=== PATIENT | male | born 1955 | race African-American/Black ===

== ENCOUNTER 2018-07-26 14:24 | Inpatient (IN) | payer OTHER ==
--- NOTE | 2018-07-15 22:40 | NUR ---
PT. AWAKE AND WATCHING TV. ABLE TO USE URINAL BY HIMSELF. GOOD AFFECT. VERBALIZES SIMPLE NEEDS. CALL LIGHT WITH IN REACH. Addendum: 07/30/18 at 0027 by Marcella Dorsey RN CHARTING FOR 07/29/18
[~2018-07-26] VITALS: Ht 172.7 cm; Wt 62.6 kg
--- NOTE | 2018-07-26 14:24 | NUR ---
pt brought in by EMS to bed 7
[2018-07-26 14:32] VITALS: BP 122/81
--- NOTE | 2018-07-26 14:34 | NUR ---
NUSRAT. PATIENT PRESENTS TO ED WITH ALOC . PT SPEACH IS HARD TO UNDERSTAND DUE TO DEVELOPMENTAL DELAYS. PER REPORT FROM APPLICATIONS CONSULTANT HE HAD A NEAR SYNCOPE EPISODE OUT SIDE HIS ADULT DAY CARE FACILITY AND WAS ACTING ALTERED AFTER THAT. DENIES N/V/D; SKIN IS PINK/WARM/DRY; AAOX4 WITH EVEN AND STEADY GAIT; LUNGS CLEAR BL; HR EVEN AND REGULAR; PT PRESENTS WITH FEVER AND COUGH. PATIENT STATES PAIN OF 0/10 AT THIS TIME; VSS; PATIENT POSITIONED FOR COMFORT; HOB ELEVATED; BEDRAILS UP X2; BED DOWN. ER MD MADE AWARE OF PT STATUS.
[2018-07-26] MEDS ORDERED: NACL 0.9% 2,000 ML IV SCH (14:47)
[2018-07-26] MEDS ORDERED: FAMOTIDINE 20 MG/2 ML VIAL IVP ONE (14:50)
[2018-07-26] MEDS ORDERED: cefTRIAXone 1,000 MG in DEXT 5% MINI-BAG PLUS 50 ML IV ONE (14:50)
[2018-07-26] MEDS ORDERED: ALBUTEROL 0.083% 2.5 MG/3 ML NEBU INH ONE (14:50)
[2018-07-26] MEDS ORDERED: AZITHROMYCIN 500 MG in DEXTROSE 5% 250 ML IV ONE (14:50)
[2018-07-26] MEDS ORDERED: MAGNESIUM SULFATE 50% 1,000 MG in NACL 0.9% 50 ML IV ONE (14:50)
[2018-07-26] MEDS ORDERED: IPRATROPIUM 0.02% 0.5 MG/2.5 ML NEBU INH ONE (14:50)
[2018-07-26] MEDS ORDERED: methylPREDNISolone SS 125 MG/2 ML VIAL IVP ONE (14:50)
[2018-07-26] MEDS ORDERED: cefTRIAXone 1,000 MG VIAL ONE (15:04)
[2018-07-26] MEDS ORDERED: AZITHROMYCIN 500 MG INJ VIAL IV ONE (15:04)
[2018-07-26] MEDS ORDERED: MAGNESIUM SULFATE 50% 1000 MG/2 ML VIAL IV ONE (15:04)
[2018-07-26 15:21] LABS: HEMATOCRIT 37.1 % (36-52); HEMOGLOBIN 12.1 g/dL (12.0-18.0); MEAN CORPUSCULAR HEMOGLOBIN 29 pg (27-31); MEAN CORPUSCULAR HGB CONC 33 g/dL (33-37); MEAN CORPUSCULAR VOLUME 88.7 fL (80-94); PLATELET COUNT (AUTO) 181 K/uL (140-450); RED BLOOD CELL COUNT(AUTO) 4.19 MIL/uL (4.20-6.10); RED CELL DISTRIBUTION WIDTH 16.1 % (11.6-13.7); WHITE BLOOD COUNT (AUTO) 15.5 K/uL (4.8-10.8)
[2018-07-26 15:40] LABS: PROTHROMBIN TIME 11.2 secs (10.8-13.4)
[2018-07-26 15:46] LABS: LYMPHOCYTES % (MANUAL) 6 % (20-46); MONOCYTES % (MANUAL) 10 % (5-12)
[2018-07-26 16:01] LABS: ALBUMIN 3.1 g/dL (3.4-5.0); ANION GAP 10.7 (8-16); CREATININE 1.2 mg/dL (0.7-1.3); POTASSIUM 4.7 mmol/L (3.5-5.1); TOTAL BILIRUBIN 0.3 mg/dL (0.0-1.0)
--- NOTE | 2018-07-26 16:01 | NUR ---
SPOKE WITH LIZ HIGGINS FROM [facility] AND GAVE THEM UPDATE THAT PATIENT IS PENDING WORKUP.
[2018-07-26 16:30] LABS: APPEARANCE,URINE CLEAR (CLEAR); BILIRUBIN,URINE NEGATIVE (NEGATIVE); BLOOD, URINE NEGATIVE (NEGATIVE); COLOR,URINE YELLOW (YELLOW); LEUKOCYTE ESTERASE ,URINE NEGATIVE (NEGATIVE); NITRITE, URINE NEGATIVE (NEGATIVE); UGLUCOSE 3+ (NEGATIVE)
[2018-07-26] MEDS ORDERED: NACL 0.9% 1,000 ML IV ONE (16:50)
[2018-07-26] MEDS ORDERED: ZOLPIDEM 5 MG TAB PO PRN (17:30)
[2018-07-26] MEDS ORDERED: MORPHINE SULFATE 2 MG/ML SYR IVP PRN (17:30)
[2018-07-26] MEDS ORDERED: ONDANSETRON 4 MG/2 ML VIAL IM/IVP PRN (17:30)
[2018-07-26] MEDS ORDERED: HYDROcodone/APAP 5/325 MG 1 TAB TAB PO PRN (17:30)
[2018-07-26] MEDS ORDERED: DOCUSATE SODIUM 100 MG GELCAP PO PRN (17:30)
[2018-07-26] MEDS ORDERED: LORazepam 2 MG/ML VIAL IM/IVP PRN (17:30)
[2018-07-26] MEDS ORDERED: ALBUTEROL SULFATE/IPRATROPIU 3 ML SOL IH PRN (17:45)
[2018-07-26] MEDS: NACL 0.9% 1,000 ML IV SCH (17:49)
--- NOTE | 2018-07-26 17:52 | NUR ---
PT TAKEN TO CT
--- NOTE | 2018-07-26 18:25 | NUR ---
RECEIVED PT REPORT FROM ER NURSE AT BEDSIDE. PT IS AAOX2. VITALS TAKEN, WITHIN NORMAL LIMIT. BP 103/67, HR 95, TEMP 97.8, 98% ON ROOM AIR. NO S/S OF ACUTE DISTRESS. PROVIDE PT WITH URINAL, URINE X1. PIC TAKEN FOR THE UPPER EXTREMITIES AND BACK. PT STATED THAT THE SCABS ARE FROM HE SCRATCHING HIMSELF. OTHERWISE SKIN IS INTACT. ORIENTED PT TO THE ROOM. MRSA SWAB DONE. BED IN LOWEST POSITION. CALL LIGHT WITHIN REACH.
[2018-07-26] MEDS ORDERED: DEXTROSE 50% 50 ML SYR IVP PRN (18:30)
[2018-07-26] MEDS: ALBUTEROL SULFATE/IPRATROPIU 3 ML SOL IH SCH (18:39)
[2018-07-26] MEDS ORDERED: GLIM2TAB PO (18:58)
[2018-07-26] MEDS ORDERED: METF1000 PO (18:58)
[2018-07-26] MEDS ORDERED: QUET400T PO (18:58)
[2018-07-26] MEDS ORDERED: FERR325E14 PO (18:58)
[2018-07-26] MEDS ORDERED: VITD1000 PO (18:58)
[2018-07-26] MEDS ORDERED: ALLO100T21 PO (18:58)
[2018-07-26] MEDS ORDERED: CETI10TA71 PO (18:58)
[2018-07-26] MEDS ORDERED: DIVA500T1 PO (18:58)
--- NOTE | 2018-07-26 19:00 | NUR ---
REPORT LACTIC ACID 1.[address] ELLIOTT. NO REPEAT NEEDED.
[2018-07-26 19:30] VITALS: BP 107/68
--- NOTE | 2018-07-26 19:30 | NUR ---
REPORT GIVEN TO MATERIALS SCIENTIST RN. PT IN STABLE CONDITION.
--- NOTE | 2018-07-26 19:30 | NUR ---
RECEIVED REPORT FROM CARLOS MELENDEZ AT BEDSIDE , PT IN STABLE CONDITION.
[2018-07-26] MEDS: DIVALPROEX 500 MG TABER PO SCH (20:33)
[2018-07-26] MEDS: GLIMEPIRIDE 2 MG TAB PO SCH (20:33)
[2018-07-26] MEDS: metFORMIN 500 MG TAB PO SCH (20:33)
[2018-07-26] MEDS: QUEtiapine FUMARATE 25 MG TAB PO SCH (20:34)
[2018-07-26] MEDS ORDERED: QUEtiapine FUMARATE 100 MG TAB PO SCH (21:00)
--- NOTE | 2018-07-26 21:00 | NUR ---
PT IN BED AWAKE AND AOX2, PT HAS SLIGHT SPEECH IMPEDIMENT AND HAS A HX OF INTELLECTUAL DISABILITY. PT HAS SCABS OVER UPPER EXTREMITIES AND BACK WITH A FEW OPEN AREAS ( NO BLEEDING NOTED). PT GIVEN SANDWICH AND SUGAR FREE PUDDING FOR DESERT. PT HAS NO C/O OF PAIN. HE IS AMBULATORY BUT HAS AN UNSTEADY GAIT. LUNG SOUNDS DIMINISHED AND B/S NOTED IN ALL 4 QUADS. V/S FOLLOWS T 97.3 P 104 R 18 B/P 107/68 02 96 WITH ROOM AIR. FINGERSTICK IS 268 GIVEN 6UNITS OF COVERAGE WITH HUMALOG. PT DENIES PAIN
[2018-07-26] MEDS: BLOOD GLUCOSE MONITORING 1 DEV DEV FS SCH (21:11)
[2018-07-26 22:41] LABS: CHOL/HDL RATIO 1.7 (1-4.5); MAGNESIUM 1.8 mg/dL (1.8-2.4); PHOSPHORUS 3.4 mg/dL (2.5-4.9)
[2018-07-26] MEDS: INSULIN LISPRO SLIDING SCALE 100 UNITS/ML VIAL SUBQ PRN (22:41)
[2018-07-26 23:15] LABS: THYROID STIMULATING HORMONE 0.81 uIU/mL (0.34-3.74)
[2018-07-27] VITALS: BP 88/60
--- NOTE | 2018-07-27 01:00 | NUR ---
PT IN BED ASLEEP, NO S/S OF PAIN OR DISTRESS NOTED. IV SITE ON R AC FLUSHED PATENT AND INTACT.V/S FOLLOWS T 97.8 P 85 R 18 B/P 88/60 02 97% WITH ROOM AIR.
[2018-07-27] MEDS ORDERED: INFLUENZA VIRUS VACCINE QUAD 0.5 ML SYR IMVAC PRN (01:35)
[2018-07-27 04:00] VITALS: BP 103/68
[2018-07-27] MEDS: NACL 0.9% 1,000 ML IV SCH ×4 (04:31→20:40)
[2018-07-27] MEDS: ALBUTEROL SULFATE/IPRATROPIU 3 ML SOL IH SCH ×3 (06:00→18:55)
[2018-07-27] MEDS: METOCLOPRAMIDE 10 MG TAB PO SCH ×3 (06:26→16:34)
[2018-07-27] MEDS: BLOOD GLUCOSE MONITORING 1 DEV DEV FS SCH ×4 (06:26→20:56)
--- NOTE | 2018-07-27 06:29 | NUR ---
PATIENT HAS BEEN SCREENED AND CATEGORIZED HIGH NUTRITION RISK. PATIENT WILL BE SEEN WITHIN 1-2 DAYS OF ADMISSION. 07/27/18-07/28/18 MARY WHITFIELD MS, RDN
[2018-07-27 06:44] LABS: HEMATOCRIT 33.9 % (36-52); HEMOGLOBIN 11.2 g/dL (12.0-18.0); LYMPHOCYTES # (AUTO) 0.9 K/uL (2.0-11.5); LYMPHOCYTES % (AUTO) 5.3 % (20.5-51.1); MEAN CORPUSCULAR HEMOGLOBIN 29 pg (27-31); MEAN CORPUSCULAR HGB CONC 33 g/dL (33-37); MEAN CORPUSCULAR VOLUME 88.9 fL (80-94); MONOCYTES # (AUTO) 0.9 K/uL (0.8-1.0); MONOCYTES % (AUTO) 5.1 % (1.7-9.3); NEUTROPHILS # (AUTO) 15.7 K/uL (1.8-7.7); NEUTROPHILS % (AUTO) 89.6 % (42.2-75.2); PLATELET COUNT (AUTO) 179 K/uL (140-450); RED BLOOD CELL COUNT(AUTO) 3.82 MIL/uL (4.20-6.10); RED CELL DISTRIBUTION WIDTH 16.8 % (11.6-13.7); WHITE BLOOD COUNT (AUTO) 17.5 K/uL (4.8-10.8)
--- NOTE | 2018-07-27 06:50 | NUR ---
PT SLEEPING WITH NO SIGNS OF DISTRESS NOTED AT THIS TIME NO HHN GIVEN
[2018-07-27 07:00] LABS: ANION GAP 14.3 (8-16); CARBON DIOXIDE 25.7 mmol/L (21-32); CREATININE 1.1 mg/dL (0.7-1.3)
--- NOTE | 2018-07-27 07:35 | NUR ---
RECEIVED PT FROM SELF PROPELLED HOT MIX ROLLER OPERATOR NURSEJOSE, PT IS AWAKE AND LYING ON THE BED, SIDE RAILS ARE UP AND CALL LIGHT WITHIN REACH, BED IN LOW POSITION AND SAFETY PRECAUTION ENFORCED, YELLOW GOWN, YELLOW SIGN WERE PLACED. PTY HAS AN IV LINE ON THE LEFT AC G. 20 WITH NS AT 90ML/HR, INFUSING AND INTACT. NO SIGN OF DISTRESS NOTED AND WILL CONTINUE TO MONITOR.
[2018-07-27 08:00] VITALS: BP 97/64
[2018-07-27] MEDS: CHOLECALCIFEROL 1,000 IU TAB PO SCH (08:29)
[2018-07-27] MEDS: metFORMIN 500 MG TAB PO SCH ×2 (08:30→20:52)
[2018-07-27] MEDS: DIVALPROEX 500 MG TABER PO SCH (08:30)
[2018-07-27] MEDS: GLIMEPIRIDE 2 MG TAB PO SCH ×3 (08:30→16:51)
[2018-07-27] MEDS: FERROUS SULFATE 325 MG TABEC PO SCH (08:31)
[2018-07-27] MEDS: ALLOPURINOL 100 MG TAB PO SCH (08:31)
[2018-07-27] MEDS: LORATADINE 10 MG TAB PO SCH (08:31)
--- NOTE | 2018-07-27 08:35 | NUR ---
PT IS AWAKE AND WAS ASSISTED TO THE BATHROOM AND ORAL MEDICATIONS WERE GIVEN AND PT TOLERATED IT. NO SIGN OF DISTRESS NOTED AND WILL CONTINUE TO MONITOR PT.
--- NOTE | 2018-07-27 08:40 | NUR ---
PT IS OFF THE UNIT AND ROOM AND WAS TAKEN BY ELISABET OF RADIOLOGY FOR A NM PULMONARY VQ SCAN, PT IS STABLE AT THIS TIME.
[2018-07-27] MEDS ORDERED: AZITHROMYCIN 250 MG TAB PO SCH (09:00)
--- NOTE | 2018-07-27 09:43 | NUR ---
07/27/18 RD INITIAL ASSESSMENT COMPLETED PLEASE REFER TO NUTRITION ASSESSMENT UNDER CARE ACTIVITY FOR ESTIMATED NUTRITIONAL NEEDS. RD RECOMMENDATIONS: 1. CONTINUE ON CCHO 60 GM DIET TOLERATED. 2. RDN WILL ADD DIET HEALTH SHAKES WITH ALL MEALS TID TO HELP MEET EST KCAL NEEDS. THIS WILL PROVIDE 12 OZ, 600 KCAL, [address] WILL F/U 3-5 DAYS; MODERATE RISK. MARY WHITFIELD MS, RDN
--- NOTE | 2018-07-27 10:50 | NUR ---
PT VERBALIZED HAVING A HEADACHE WITH A PAIN RATE OF 6/10 AND ASKED FOR A TYLENOL. WILL MEDICATE PT.
[2018-07-27] MEDS: ACETAMINOPHEN 325 MG TAB PO PRN (10:55)
--- NOTE | 2018-07-27 10:57 | NUR ---
PT WAS MEDICATED WITH TYLENOL FOR HIS HEADACHE FOR A PAIN RATE OF 6/10 AND PT TOLERATED IT. WILL MONITOR PT.
--- NOTE | 2018-07-27 11:00 | NUR ---
A NEW PERIPHERAL LINE WAS PLACED TO THE PT ON THE LEFT FA G. 20 WITH NS AT 90ML/HR , INFUSING, INTACT. PT IS TOLERATING IT AND WILL CONTINUE TO MONITOR PT.
--- NOTE | 2018-07-27 11:45 | NUR ---
PT REFUSED TO TAKE THE REGLAN BECAUSE HE SAID " IT IS NOT GOOD".
[2018-07-27 12:00] VITALS: BP 102/68
[2018-07-27 16:00] VITALS: BP 119/74
--- NOTE | 2018-07-27 16:21 | NUR ---
ULTRASOUND OF THE VENOUS AND ARTERIAL BILATERAL LOWER EXTREMITIES WAS BEING DONE TO THE PT NOW. PT SHOWS NO SIGN OF DISTRESS.
[2018-07-27] MEDS ORDERED: METOCLOPRAMIDE 10 MG TAB ONE (16:22)
[2018-07-27] MEDS ORDERED: GLIMEPIRIDE 2 MG TAB ONE (16:22)
--- NOTE | 2018-07-27 16:50 | NUR ---
PT'S BLOOD GLUCOSE WAS CHECKED AND RESULT IS 50. D50 WAS GIVEN TO PT VIA IV PUSH PER PROTOCOL. PT TOLERATED IT AND WILL RE-ASSESS BLOOD GLUCOSE AFTER 15 MINS. NO SIGN OF DISTRESS NOTED FROM THE PT. WILL MONITOR.
--- NOTE | 2018-07-27 18:00 | NUR ---
PT IS AWAKE AND HAVING HIS DINNER WITH BROTHER ON THE BEDSIDE. NO SIGN OF DISTRESS NOTED TO THE PT. WILL MONITOR PT.
--- NOTE | 2018-07-27 19:30 | NUR ---
ENDORSED PT TO CARE MANAGER NURSE FOR CONTINUITY OF CARE. PT IS STABLE AT THIS TIME.
--- NOTE | 2018-07-27 19:32 | NUR ---
RECEIVED BEDSIDE REPORT FROM NIGHT NURSE. PT AWAKE, ALERT X 2, GARBLED SPEECH NOTED WITH HX MENTAL DISABILITY.PT AMBULATES BUT NEEDS MODERATE ASSISTANCE. FALL RISK. NO COUGH NOTED, CHILLS AND FEVER. NO RESPIRATORY DISTRESS NOTED. TELE PT.PT HAS IV INFUSING ON L FA, 22 G. PT HAS MULTIPLE SCABS ON BILATERAL UPPER AND LOWER EXTREMITIES, BACK AND CHEST. BED AT LOWEST POSITION. CALL LIGHT WITHIN REACH. WILL CONTINUE TO MONITOR
--- NOTE | 2018-07-27 20:00 | NUR ---
ASSISTED PT TO GO TO BATHROOM, UNSTEADY GAIT NOTED, AMBULATORY BUT NEEDS MODERATE ASSISTANCE.
--- NOTE | 2018-07-27 20:40 | NUR ---
ADMINISTERED SCHEDULED MEDICATIONS. PT ABLE TO SWALLOW WITH ASPIRATION PRECAUTION.
[2018-07-27] MEDS: QUEtiapine FUMARATE 25 MG TAB PO SCH (20:51)
[2018-07-27] MEDS: DIVALPROEX 500 MG TABEC PO SCH (20:54)
--- NOTE | 2018-07-27 21:10 | NUR ---
INFORMED DR. FUCHS THAT BLOOD GLUCOSE LEVEL AT 282 AND NEEDS 6 UNITS HUMALOG. SHE SAID TO RECHECK BLOOD SUGAR AT 2230 BEFORE GIVING THE INSULIN COVERAGE.
[2018-07-27] MEDS: INSULIN LISPRO SLIDING SCALE 100 UNITS/ML VIAL SUBQ PRN (22:38)
--- NOTE | 2018-07-27 22:38 | NUR ---
BS RECHECKED ORDERED WITH RESULT OF 230. DR. FUCHS MADE AWARE AND OK TO GIVE 4 UNITS OF HUMALOG PER COVERAGE.
--- NOTE | 2018-07-27 23:16 | NUR ---
FREQUENT ROUNDING DONE. VOIDED USING URINAL. PT STABLE, NOT IN RESPIRATORY DISTRESS. NO COMPLAINTS OF PAIN. WILL CONTINUE TO MONITOR.
[2018-07-28] VITALS: BP 127/67
--- NOTE | 2018-07-28 02:15 | NUR ---
FREQUENT ROUNDING DONE. PT.VOIDED USING URINAL PT STABLE, NOT IN RESPIRATORY DISTRESS. NO COMPLAINTS OF PAIN. WILL CONTINUE TO MONITOR.
[2018-07-28] MEDS: NACL 0.9% 1,000 ML IV SCH ×3 (02:47→12:58)
[2018-07-28 03:55] VITALS: BP 104/55
--- NOTE | 2018-07-28 04:00 | NUR ---
VITAL SIGNS DONE. HOURLY CHECK DONE. PT VOIDED USING URINAL. PT AWAKE IN STABLE CONDITION. WILL CONTINUE TO MONITOR
--- NOTE | 2018-07-28 06:09 | NUR ---
BLOOD SUGAR CHECKED THIS AM RESULT 63. PT AWAKE,ALERT AND ORIENTED X2-3. GIVEN SOME JUICE AND APPLE SAUCE. TOLERATED WELL. WILL RECHECKED BLOOD SUGAR AFTER 30 MINUTES.
[2018-07-28] MEDS: ALBUTEROL SULFATE/IPRATROPIU 3 ML SOL IH SCH ×3 (06:18→18:46)
--- NOTE | 2018-07-28 06:55 | NUR ---
RECHECKED BLOOD SUGAR THIS AM AFTER THE JUICE AND APPLE SAUCE ,RESULT 101. WILL ENDORSED TO AM NURSE.
[2018-07-28] MEDS: BLOOD GLUCOSE MONITORING 1 DEV DEV FS SCH ×4 (06:58→22:00)
[2018-07-28] MEDS: METOCLOPRAMIDE 10 MG TAB PO SCH ×3 (07:07→18:03)
--- NOTE | 2018-07-28 07:25 | NUR ---
ENDORSED PT IN STABLE CONDITION TO AM NURSE FOR CONTINUITY OF CARE.
[2018-07-28 07:26] LABS: HEMATOCRIT 33.1 % (36-52); HEMOGLOBIN 10.8 g/dL (12.0-18.0); MEAN CORPUSCULAR HEMOGLOBIN 29 pg (27-31); MEAN CORPUSCULAR HGB CONC 33 g/dL (33-37); MEAN CORPUSCULAR VOLUME 88.7 fL (80-94); PLATELET COUNT (AUTO) 177 K/uL (140-450); RED BLOOD CELL COUNT(AUTO) 3.73 MIL/uL (4.20-6.10); WHITE BLOOD COUNT (AUTO) 16.5 K/uL (4.8-10.8)
--- NOTE | 2018-07-28 07:30 | NUR ---
RECEIVED PT FROM CONFLICTS ANALYST NURSE, KWAME, PT IS AWAKE AND LYING ON THE BED WITH SIDE RAILS UP AND CALL LIGHT WITHIN REACH, SAFETY PRECAUTION ENFORCED, BED IN LOW POSITION, YELLOW GOWN, YELLOW BAND AND YELLOW SIGN WERE PLACED, PT HAS AN IV LINE ON THE LEFT FA G. 22 WITH NS AT 130ML/HR RUNNING AND INTACT, RESPIRATION EVEN AND NO SIGN OF DISTRESS NOTED. WILL CONTINUE TO MONITOR PT.
[2018-07-28 07:31] LABS: MAGNESIUM 1.7 mg/dL (1.8-2.4); PHOSPHORUS 3.2 mg/dL (2.5-4.9)
[2018-07-28 07:44] LABS: ANION GAP 8.8 (8-16); CARBON DIOXIDE 30.8 mmol/L (21-32); CREATININE 0.8 mg/dL (0.7-1.3); POTASSIUM 4.6 mmol/L (3.5-5.1)
[2018-07-28 08:00] VITALS: BP 110/71
[2018-07-28] MEDS: GLIMEPIRIDE 2 MG TAB PO SCH ×2 (08:00→18:03)
[2018-07-28 08:04] LABS: BASOPHILS % (MANUAL) 0 % (0-2); EOSINOPHILS % (MANUAL) 0 % (0-4); LYMPHOCYTES % (MANUAL) 5 % (20-46); MONOCYTES % (MANUAL) 8 % (5-12)
--- NOTE | 2018-07-28 08:26 | NUR ---
SPOKE TO DR. CAMP REGARDING THE PT'S MEDICATION, AMARYL AND METFORMIN AND INFORMED THE MD OF THE PT'S UNSTABLE GLUCOSE RESULTS AND LOW MAGNESIUM LEVEL OF 1.7, DR. CAMP MADE A VERBAL ORDER TO HOLD OFF THE AMARYL AND JUST GIVE THE METFORMIN TO THE PT. VERIFIED ALSO WITH THE MD ABOUT THE ORDER U/S WITH GUIDED NEEDLE BIOPSY FOR THE PT AND MD ACKNOWLEDGED AND SAID TO OBTAIN CONSENT. WILL CARRY OUT ORDER
[2018-07-28] MEDS: metFORMIN 500 MG TAB PO SCH ×2 (08:46→20:46)
[2018-07-28] MEDS: CHOLECALCIFEROL 1,000 IU TAB PO SCH (08:46)
[2018-07-28] MEDS: ALLOPURINOL 100 MG TAB PO SCH (08:46)
[2018-07-28] MEDS: FERROUS SULFATE 325 MG TABEC PO SCH (08:46)
[2018-07-28] MEDS: LORATADINE 10 MG TAB PO SCH (08:47)
[2018-07-28] MEDS: DIVALPROEX 500 MG TABEC PO SCH ×2 (08:47→20:46)
[2018-07-28] MEDS: INSULIN LISPRO SLIDING SCALE 100 UNITS/ML VIAL SUBQ PRN ×2 (11:40→22:14)
--- NOTE | 2018-07-28 11:42 | NUR ---
PT IS AWAKE AND VITAL SIGNS AND BLOOD GLUCOSE CHECK DONE TO THE PT AND RESULT IS 295, INSULIN COVERAGE NEEDED, 6 UNITS HUMALOG WAS GIV EN SUBQ, ON THE LEFT UA AND PT TOLERATED IT. NO SIGN OF DISTRESS. WILL CONTINUE TO MONITOR PT.
[2018-07-28] MEDS ORDERED: MAG SULF 2000 MG/WATER PREMIX 100 ML IV ONE (11:55)
[2018-07-28 12:00] VITALS: BP 106/75
--- NOTE | 2018-07-28 13:00 | NUR ---
PT IS HAVING BREATHING TREATMENT NOW WITH RT ON THE BEDSIDE.PT IS TOLERATING IT.
--- NOTE | 2018-07-28 13:12 | NUR ---
BREATHING TREATMENT GIVEN BY THE RT TO THE PT WAS FINISHED NOW.
[2018-07-28] MEDS ORDERED: MAGNESIUM SULFATE 4GM in STERILE WATER 100 ML PREMIX IV SCH (13:30)
--- NOTE | 2018-07-28 14:40 | NUR ---
DR. STEVENS WAS TALKING TO THE PT'S FAMILY AND INFORMING THEM ABOUT INFORMATIONS REGARDING THE PROCEDURE THAT WILL BE DONE TO THE PT JANIE AND OBTAINED CONSENT FOR THE US NEEDLE GUIDED BIOPSY, WITNESSED BY RNTARSHA AND PT VERBALIZED UNDERSTANDING WELL THE FAMILY. CONSENT WAS SIGNED AT THIS TIME.
[2018-07-28 16:00] VITALS: BP 115/76
[2018-07-28] MEDS: diphenhydrAMINE 2% 30 GM TUBE TP SCH (17:00)
--- NOTE | 2018-07-28 18:30 | NUR ---
JOSELIN, LAN ENGINEER FROM THE [facility] VISITED THE PT. PT IS AWAKE, MEDICATIONS WERE GIVEN AND CREAM WAS APPLIED TO BLL AND BUE SKIN EXCORIATIONS AND PT TOLERATED IT. NO SIGN OF DISTRESS NOTED AND WILL CONTINUE TO MONITOR PT.
--- NOTE | 2018-07-28 19:05 | NUR ---
ENDORSED PT TO TERMINAL CLERK NURSEAREN FOR CONTINUITY OF CARE. PT IS STABLE AT THIS TIME.
--- NOTE | 2018-07-28 19:06 | NUR ---
RECEIVED REPORT FROM DAY SHIFT NURSE. PT LAYING IN BED FALL PRECAUTION IN PLACE. PT ON ROM NO SOB. A&O X4. L FOREARM 22 INFUSING NS 130 ML/HR. PT TO BE NPO AFTER MIDNIGHT PT AWARE WILL PLACE SIGN ON DOOR. REVIEWED PLAN OF CARE WITH PT. PT VERBALIZED UNDERSTANDING. BED ON LOWEST POSITION AND BED ALARM ON. CALL LIGHT WITHIN NORMAL LIMITS. WILL CONTINUE TO MONITOR.
[2018-07-28 20:00] VITALS: BP 114/64
--- NOTE | 2018-07-28 20:20 | NUR ---
SPOKE WITH DR FUCHS REGARDING PTS BLOOD SUGAR OF 171. PT IS TO BE NPO AFTER MIDNIGHT AND LAST NIGHT BLOOD SUGAR DROPPED TO 60S. NEW ORDERS FOR D5 1/2 NS AT 110ML/HR AND RECHECK BLOOD GLUCOSE AT 2200.
[2018-07-28] MEDS: QUEtiapine FUMARATE 25 MG TAB PO SCH (20:46)
--- NOTE | 2018-07-28 20:46 | NUR ---
DUE MEDICATIONS GIVEN. PATIENT TOLERATED WELL. VITAL SIGNS WITHIN NORMAL LIMITS. ALL SAFETY MEASURES IN PLACE WILL CONTINUE TO MONITOR
[2018-07-28] MEDS: DEXT 5% / NACL 0.45% 1,000 ML IV SCH (20:53)
--- NOTE | 2018-07-28 22:00 | NUR ---
RECHECKED PTS BLOOD SUGAR 176. ADMINISTERED 2U PER SLIDING SCALE PT TOLERATED WELL. WILL CONTINUE TO MONITOR.
[2018-07-29] VITALS: BP 117/79
--- NOTE | 2018-07-29 | NUR ---
PT IS SLEEPING IN BED BUT IS EASILY AROUSABLE. VITAL SIGNS WITHIN NORMAL LIMITS. DENIES PAIN. BED ALARM ON. CALL LIGHT WITHIN REACH. WILL CONTINUE TO MONITOR.
--- NOTE | 2018-07-29 01:25 | NUR ---
PT SLEEPING COMFORTABLY IN BED. NO SIGNS OF DISTRESS NOTED. WILL CONTINUE TO MONITOR.
--- NOTE | 2018-07-29 03:11 | NUR ---
PT SLEEPING IN BED. NO SIGNS OF DISTRESS NOTED.
[2018-07-29 04:00] VITALS: BP 129/86
[2018-07-29] MEDS: ACETAMINOPHEN 325 MG TAB PO PRN (04:28)
[2018-07-29] MEDS: DEXT 5% / NACL 0.45% 1,000 ML IV SCH ×2 (06:07→16:14)
[2018-07-29] MEDS: BLOOD GLUCOSE MONITORING 1 DEV DEV FS SCH ×4 (06:26→21:35)
[2018-07-29] MEDS: METOCLOPRAMIDE 10 MG TAB PO SCH ×3 (06:30→17:22)
--- NOTE | 2018-07-29 06:30 | NUR ---
DUE MEDICATIONS GIVEN. PT TOLERATED WELL. PT REMAINS NPO EXCEPT FOR MEDS FOR TODAY PROCEDURE. ALL SAFETY MEASURES IN PLACE. CALL LIGHT WITHIN REACH.
[2018-07-29] MEDS: ALBUTEROL SULFATE/IPRATROPIU 3 ML SOL IH SCH ×3 (06:59→19:41)
--- NOTE | 2018-07-29 07:24 | NUR ---
ENDORSED PT TO DAY SHIFT NURSE. PT IN STABLE CONDITION. SAFETY MEASURES IN PLACE.
--- NOTE | 2018-07-29 07:30 | NUR ---
RECEIVED PT ON BED AAOX2-3, PT HAS HISTORY OF MENTAL DISABILITY BUT HIGHLY FUNCTIONAL. NO SOB NOTED. NO C/O PAIN AT THIS TIME. IV TO LT AC HAND PATENT AND INTACT. CHEST DIMINISHED AIR ENTRY TO THE BASES OTHERWISE CLEAR. NPO MAINTAINED FOR PROCEDURE. NO EDEMA NOTED. INSTRUCTED PT TO CALL FOR ASSISTANCE, CALL LIGHT WITHIN REACH. PT VERBALIZED UNDERSTANDING. Addendum: 07/29/18 at 1014 by Radha Brownlee RN IV ON LEFT FOREARM NOT ON AC
--- NOTE | 2018-07-29 07:30 | NUR ---
RECEIVED PT ON BED AAOX2-3, PT HAS HISTORY OF MENTAL DISABILITY BUT HIGHLY FUNCTIONAL. NO SOB NOTED. NO C/O PAIN AT THIS TIME. IV TO LT AC HAND PATENT AND INTACT. CHEST DIMINISHED AIR ENTRY TO THE BASES, ON OXYGEN 3 LPM VIA NASAL CANNULA. ABDOMEN LARGE BUT SOFT. INSTRUCTED PT TO CALL FOR ASSISTANCE, CALL LIGHT WITHIN REACH. PT VERBALIZED UNDERSTANDING. Addendum: 07/29/18 at 0947 by Radha Brownlee RN PLS DISREGARD ABOVE NOTES. WRONG PT.
[2018-07-29 07:54] LABS: HEMATOCRIT 36.7 % (36-52); MEAN CORPUSCULAR HEMOGLOBIN 29 pg (27-31); MEAN CORPUSCULAR HGB CONC 33 g/dL (33-37); MEAN CORPUSCULAR VOLUME 89.4 fL (80-94); PLATELET COUNT (AUTO) 215 K/uL (140-450); RED CELL DISTRIBUTION WIDTH 16.6 % (11.6-13.7); WHITE BLOOD COUNT (AUTO) 16.5 K/uL (4.8-10.8)
[2018-07-29] MEDS: GLIMEPIRIDE 2 MG TAB PO SCH ×2 (08:00→17:22)
[2018-07-29 08:14] VITALS: BP 111/71
[2018-07-29] MEDS: metFORMIN 500 MG TAB PO SCH ×2 (08:29→17:22)
[2018-07-29 08:36] LABS: ANION GAP 9.2 (8-16); CARBON DIOXIDE 30.3 mmol/L (21-32); CREATININE 0.9 mg/dL (0.7-1.3); POTASSIUM 4.5 mmol/L (3.5-5.1)
[2018-07-29 08:45] LABS: MAGNESIUM 2.1 mg/dL (1.8-2.4); PHOSPHORUS 3.8 mg/dL (2.5-4.9)
[2018-07-29 08:51] LABS: EOSINOPHILS % (MANUAL) 4 % (0-4); LYMPHOCYTES % (MANUAL) 9 % (20-46); MONOCYTES % (MANUAL) 8 % (5-12)
[2018-07-29] MEDS: DIVALPROEX 500 MG TABEC PO SCH ×2 (08:55→20:31)
[2018-07-29] MEDS: LORATADINE 10 MG TAB PO SCH (09:00)
[2018-07-29] MEDS: CHOLECALCIFEROL 1,000 IU TAB PO SCH (09:00)
[2018-07-29] MEDS: ALLOPURINOL 100 MG TAB PO SCH (09:00)
[2018-07-29] MEDS: FERROUS SULFATE 325 MG TABEC PO SCH (09:00)
--- NOTE | 2018-07-29 10:14 | NUR ---
PHYSICAL THERAPY ON GOING AT THIS TIME.
[2018-07-29] MEDS: diphenhydrAMINE 2% 30 GM TUBE TP SCH ×3 (10:45→17:30)
--- NOTE | 2018-07-29 10:51 | NUR ---
SKIN ASSESSMENT DONE WITH THIS 63 Y/O MALE FROM [facility]IV[facility]. PT'S SKIN IS WARM BUT DRY, MULTIPLE DARK CIRCULAR OLD HEALED SCARS WITH DARKER PIGMENTATION OBSERVED ON BOTH UPPER AND LOWER EXTREMITIES. LEFT UPPER ARM OPENED OLD SCABS WITH LARGEST 1.5X1.5CM, WOUND BED IS DRY PINK, PER-WOUND SKIN INTACT. NO S/S OF INFECTION. RECOMMENDATIONS: APPLY HYDRAGUARD TO BILATERAL UPPER AND LOWER EXTREMITIES FOR DRY SKIN BID AND LEAVE IT OPEN TO AIR DRY.
--- NOTE | 2018-07-29 10:58 | NUR ---
TELEBOX REMOVED ORDERED, PT IS NOW ON MED/SURG STATUS.
[2018-07-29 11:00] VITALS: BP 105/74
--- NOTE | 2018-07-29 11:05 | NUR ---
PT WHEELED TO THE RADIOLOGY DEPARTMENT IN STABLE CONDITION. PT IS FOR ULTRASOUND GUIDED THYROID MASS BIOPSY.
[2018-07-29] MEDS ORDERED: NICOTINE TRANSD SYS 7 MG/24 HR PATCH TD SCH (11:30)
--- NOTE | 2018-07-29 11:55 | NUR ---
PT BACK FROM BX IN STABLE CONDITION. NO SOB NOTED. NO C/O PAIN AT THIS TIME. Addendum: 07/29/18 at 1414 by Radha Brownlee RN SMALL BANDAID DRESSING TO LEFT SIDE OF NECK AREA, DRY AND INTACT.
--- NOTE | 2018-07-29 12:39 | NUR ---
PT BACK FROM BX IN STABLE CONDITION. NO SOB NOTED. NO C/O PAIN AT THIS TIME. Addendum: 07/29/18 at 1241 by Radha Brownlee RN DUPLICATE
[2018-07-29] MEDS: INSULIN LISPRO SLIDING SCALE 100 UNITS/ML VIAL SUBQ PRN ×2 (12:43→17:35)
--- NOTE | 2018-07-29 13:08 | NUR ---
PT IS EATING. NO SOB OR DISTRESS NOTED. HHN TX NOT GIVEN AT THIS TIME. WILL CONTINUE TO MONITOR.
--- NOTE | 2018-07-29 15:15 | NUR ---
PT RESTING. NO SOB NOTED. NO C/O PAIN AT THIS TIME. ENDORSED TO DEJA-RN FOR CONTINUITY OF CARE.
--- NOTE | 2018-07-29 15:16 | NUR ---
RECEIVED BEDSIDE REPORT FROM MARTA PARSONS. PATIENT IS AWAKE, ALERT AND ORIENTEDX2. PATIENT HAS MENTAL DELAY. PATIENT IS MED SURGE. NO SIGNS OF DISTRESS ON ROOM AIR. DIMINISHED LUNG SOUNDS. IV ON L FA 22G INFUSING D5 1/2NS AT 110. CLEAN, DRY AND INTACT. PATIENT HAS URINAL AT BEDSIDE. FALL RISK PROTOCOL IN PLACE. BED IN LOW POSITION. CALL LIGHT WITHIN REACH, WILL CONTINUE TO MONITOR THE PATIENT.
[2018-07-29 16:00] VITALS: BP 106/73
--- NOTE | 2018-07-29 17:27 | NUR ---
ADMINISTERED MEDS. PATIENT TOLERATED WELL. WILL CONTINUE TO MONITOR THE PATIENT. BED IN LOW POSITION. CALL LIGHT WITHIN REACH
--- NOTE | 2018-07-29 19:10 | NUR ---
GAVE BEDSIDE REPORT TO CUSTOMER SUCCESS INTERN NURSE. PATIENT ENDORSED IN STABLE CONDITION
[2018-07-29] MEDS: NACL 0.9% 1,000 ML IV SCH (19:16)
--- NOTE | 2018-07-29 19:20 | NUR ---
RECEIVED FROM AM RN IN BED AWAKE AND ALERT. NO SOB. DENIES ANY PAIN AT THIS TIME. CALL LIGHT WITH IN REACH. VERBALIZES WELL. IVF SITE TO RIGHT HAND INTACT AND NO INFILTRATION. GOOD BLOOD RETURN. DX. OF ASPIRATION PNEUMONIA. CARE PLANS FOR THE NIGHT DISCUSSED WITH HIM AND CALL LIGHT PLACED AT BEDSIDE. AFEBRILE. SKIN INTACT.
[2018-07-29] MEDS: QUEtiapine FUMARATE 25 MG TAB PO SCH (20:30)
[2018-07-29] MEDS: CLINDAMYCIN PHOS 600MG/D5W PM 50 ML IV SCH (20:30)
[2018-07-29] MEDS: LACTOBACILLUS RHAMNOSUS GG 1 EACH CAP PO SCH (20:30)
--- NOTE | 2018-07-30 00:25 | NUR ---
SLEEPING WELL. NO RESTLESSNESS. NO COMPLAINTS DONE SINCE START OF SHIFT.
[2018-07-30 00:28] VITALS: BP 128/82
--- NOTE | 2018-07-30 02:18 | NUR ---
CHECKED ON PT. SLEEPING WELL. NO RESTLESSNESS NOTED. IVF INFUSING WELL AND NO S/S OF INFILTRATION. BED ALARM AT BEDSIDE.
--- NOTE | 2018-07-30 04:00 | NUR ---
SLEEPING . NO RESTLESSNESS.
[2018-07-30] MEDS: CLINDAMYCIN PHOS 600MG/D5W PM 50 ML IV SCH ×3 (06:11→20:15)
[2018-07-30] MEDS: METOCLOPRAMIDE 10 MG TAB PO SCH ×3 (06:11→17:18)
[2018-07-30] MEDS: NACL 0.9% 1,000 ML IV SCH ×2 (06:12→16:39)
[2018-07-30] MEDS: BLOOD GLUCOSE MONITORING 1 DEV DEV FS SCH ×4 (06:12→20:23)
[2018-07-30] MEDS: ALBUTEROL SULFATE/IPRATROPIU 3 ML SOL IH SCH ×3 (06:53→18:39)
--- NOTE | 2018-07-30 06:53 | NUR ---
PT SLEEPING WITH NO SIGNS OF DISTRESS NOTED AT THIS TIME NO HHN GIVEN
--- NOTE | 2018-07-30 07:11 | NUR ---
ENDORSED TO THE NEXT RN FOR CONTINUITY OF CARE. AWAKE AND ALERT. NO SOB. DENIES PAIN. NEEDS ANTICIPATED AND MET.
[2018-07-30 07:23] LABS: BASOPHILS % (AUTO) 0.3 % (0.0-2.0); EOSINOPHILS # (AUTO) 0.2 K/uL (0-0.4); EOSINOPHILS % (AUTO) 1.5 % (0.0-4.0); HEMATOCRIT 33.8 % (36-52); HEMOGLOBIN 11.2 g/dL (12.0-18.0); LYMPHOCYTES # (AUTO) 1.2 K/uL (2.0-11.5); LYMPHOCYTES % (AUTO) 11.4 % (20.5-51.1); MEAN CORPUSCULAR HEMOGLOBIN 30 pg (27-31); MEAN CORPUSCULAR HGB CONC 33 g/dL (33-37); MEAN CORPUSCULAR VOLUME 89.2 fL (80-94); MONOCYTES # (AUTO) 1.1 K/uL (0.8-1.0); MONOCYTES % (AUTO) 10.2 % (1.7-9.3); NEUTROPHILS # (AUTO) 8.1 K/uL (1.8-7.7); NEUTROPHILS % (AUTO) 76.6 % (42.2-75.2); PLATELET COUNT (AUTO) 209 K/uL (140-450); RED BLOOD CELL COUNT(AUTO) 3.79 MIL/uL (4.20-6.10); RED CELL DISTRIBUTION WIDTH 16.8 % (11.6-13.7); WHITE BLOOD COUNT (AUTO) 10.5 K/uL (4.8-10.8)
--- NOTE | 2018-07-30 07:30 | NUR ---
RECEIVED PT ON BED AAOX2-3, PT HAS HISTORY OF MENTAL DISABILITY BUT HIGHLY FUNCTIONAL. NO SOB NOTED. NO C/O PAIN AT THIS TIME. IV TO RT HAND PATENT AND INTACT. CHEST DIMINISHED AIR ENTRY TO THE BASES OTHERWISE CLEAR. NO EDEMA NOTED. INSTRUCTED PT TO CALL FOR ASSISTANCE, CALL LIGHT WITHIN REACH. PT VERBALIZED UNDERSTANDING.
[2018-07-30 07:38] LABS: ANION GAP 8.2 (8-16); CREATININE 0.8 mg/dL (0.7-1.3); POTASSIUM 4.2 mmol/L (3.5-5.1)
[2018-07-30 08:00] VITALS: BP 116/77
[2018-07-30] MEDS: metFORMIN 500 MG TAB PO SCH ×2 (08:00→17:18)
[2018-07-30] MEDS: GLIMEPIRIDE 2 MG TAB PO SCH ×2 (08:00→17:00)
[2018-07-30] MEDS ORDERED: ROC2I IV (08:34)
[2018-07-30] MEDS ORDERED: NICOTINE TRANSD SYS 7 MG/24 HR PATCH TD SCH (09:00)
[2018-07-30] MEDS: ALLOPURINOL 100 MG TAB PO SCH (09:18)
[2018-07-30] MEDS: DIVALPROEX 500 MG TABEC PO SCH ×2 (09:18→20:15)
[2018-07-30] MEDS: CHOLECALCIFEROL 1,000 IU TAB PO SCH (09:18)
[2018-07-30] MEDS: diphenhydrAMINE 2% 30 GM TUBE TP SCH ×3 (09:18→17:18)
[2018-07-30] MEDS: FERROUS SULFATE 325 MG TABEC PO SCH (09:19)
[2018-07-30] MEDS: LORATADINE 10 MG TAB PO SCH (09:19)
[2018-07-30] MEDS ORDERED: L. R1CAP PO (09:38)
--- NOTE | 2018-07-30 13:23 | NUR ---
PT IS HAVING BREATHING TREATMENT NOW, RT ON THE BEDSIDE.
--- NOTE | 2018-07-30 14:53 | NUR ---
CM NOTE PER PROJECT SCIENTIST JOSELIN IsraelCristi PH# [phone], THEY WILL STILL HAVE TO GET LICENSING FOR IV ANTIBIOTICS. PER DR. GUERIN, HE SPOKE WITH PATIENT'S BROTHER GAURAV AND HE IS IN AGREEMENT WITH PATIENT GOING TO SNF. ELIO HERNANDEZ AWARE. PATIENT HAS SECONDARY IEHP. PER IEHP TODD LIRIANO, IF PATIENT WILL GO TO SNF, FOR [facility] AUTH# [id number]. SPOKE WITH JESSICA OF [facility] PH# [phone] AND PLACED PATIENT ON WILL CALL ONCE THERE IS AN ACCEPTING SNF. CHARGE NURSE JULIANA AWARE.
[2018-07-30 16:00] VITALS: BP 122/78
--- NOTE | 2018-07-30 16:47 | NUR ---
CALLED THE INSTRUCTOR LOOPING OF [facility] AND SPOKE WITH JOSELIN, INFORMED HER THAT [place] [facility] [facility]. JOSELIN STATED SHE WILL CALL PT'S FAMILY REGARDING THE TRANSFER TO SNF .
--- NOTE | 2018-07-30 16:59 | NUR ---
Key Ringer Note: I called and spoke with patient's brother Dom to inquire his snf preference. He stated his snf preference is [facility] , he stated he would like patient to be transfer to this facility because it is close to the hospital. I faxed inquiry to [facility]. Per Nikki from [facility] , patient has been accepted and may go to room 31A at their facility today, accepting physician is , and charge nurse Robel made aware. I called and spoke with patient's brother Dom and provided him with [facility]'s phone number and address, he is aware patient will be transfer to [facility] today.
--- NOTE | 2018-07-30 18:59 | NUR ---
REPORT GIVEN TO ESTHER LOZANO AT [facility] [phone]
--- NOTE | 2018-07-30 19:09 | NUR ---
PT RESTING. NO SOB NOTED. NO COMPLAINTS MADE AT THIS TIME. WILL ENDORSE TO NEXT SHIFT NURSE FOR CONTINUITY OF CARE.
--- NOTE | 2018-07-30 19:10 | NUR ---
REPORT RECEIVED FROM AM NURSE AT BEDSIDE. PT IN STABLE CONDITION. AAOX2-3. INTRODUCED SELF. BOARD UPDATED. IV SITE R HAND 22G RUNNING NS@90ML/HR PATENT AND INTACT. SKIN WARM, DRY, AND INTACT WITH NO OPEN WOUNDS. BED LOCKED IN LOW POSITION. CALL PERKINS WITHIN REACH. SAFETY MEASURES IN PLACE. PT TO BE DISCHARGED. DISCHARGE PAPERWORK DONE. PT UNABLE TO SIGN. [facility] TO ARRIVE AT 2000 FOR TRANSFER TO [facility] [place].
[2018-07-30] MEDS: LACTOBACILLUS RHAMNOSUS GG 1 EACH CAP PO SCH (20:15)
[2018-07-30] MEDS: QUEtiapine FUMARATE 25 MG TAB PO SCH (20:15)
--- NOTE | 2018-07-30 20:15 | NUR ---
DEPAKOTE, CULTURELLE, AND SEROQUEL GIVEN PO. CLINDAMYCIN HUNG AND RUNNING. BS 156. 2 UNITS OF HUMALOG GIVEN SUBQ. PT TOLERATED WELL.
[2018-07-30] MEDS: INSULIN LISPRO SLIDING SCALE 100 UNITS/ML VIAL SUBQ PRN (20:23)
--- NOTE | 2018-07-30 21:15 | NUR ---
FLU SHOT NOT GIVEN DUE TO PT BEING ALLERGIC TO EGGS.
--- NOTE | 2018-07-30 21:15 | NUR ---
PT PICKED UP BY [facility]. REPORT GIVEN TO [facility] AT BEDSIDE. PT TO [facility] ROOM 31A. IV SITE R HAND 22G SL PATENT AND INTACT. ALL BELONGINGS SENT WITH [facility].
== END 2018-07-30 21:25 | DRG 871 ==
LOC: MED 14:24 → MTU 16:56
PROVIDERS: ADMIT General Practice; ATTEND General Practice
PROC: 0G9G3ZX Drainage of Left Thyroid Gland Lobe, Percutaneous Approach, Diagnostic (ICD-10-PCS; principal; 2018-07-29)
DX: A41.9 Sepsis, unspecified organism (principal); J69.0 Pneumonitis due to inhalation of food and vomit; J44.1 Chronic obstructive pulmonary disease with (acute) exacerbation; E44.0 Moderate protein-calorie malnutrition; E87.1 Hypo-osmolality and hyponatremia; E86.0 Dehydration; K21.9 Gastro-esophageal reflux disease without esophagitis; E11.65 Type 2 diabetes mellitus with hyperglycemia; E11.40 Type 2 diabetes mellitus with diabetic neuropathy, unspecified; E87.8 Other disorders of electrolyte and fluid balance, not elsewhere classified; F79 Unspecified intellectual disabilities; E07.9 Disorder of thyroid, unspecified; E83.42 Hypomagnesemia; E11.21 Type 2 diabetes mellitus with diabetic nephropathy; M19.90 Unspecified osteoarthritis, unspecified site; M41.9 Scoliosis, unspecified; F17.200 Nicotine dependence, unspecified, uncomplicated; Z91.013 Allergy to seafood; Z79.899 Other long term (current) drug therapy; Z68.21 Body mass index [BMI] 21.0-21.9, adult; Z79.84 Long term (current) use of oral hypoglycemic drugs
CPT/HCPCS: 36415; 36600; 71045; 71250; 76536; 76942; 78582; 80048; 80053; 81003; 82140; 82150; 82550; 82803; 82948; 83036; 83605; 83615; 83690; 83735; 83880; 84100; 84134; 84443; 84484; 85025; 85379; 85610; 85730; 87040; 87081; 87086; 88104; 93005; 93925; 93970; 94640; 96361; 96365; 96375; 97110; 97116; 97530; 99285; A9540; C1758; J0456; J0696; J1815; J2930; J3475; J3490; J7030; J7060; J7613; J7620; J7644; J8597; Q0092